=== PATIENT | female | born 1995 | race American Indian/Alaskan Native ===

== ENCOUNTER 2022-02-20 11:01 | Emergency (ER) | payer MEDICAID ==
--- NOTE | 2022-02-20 11:05 | Emergency Department Report ---
ED Female HPI - General Stated complaint: SEIZURE Time Seen by Provider: 02/20/22 11:04 ED Review of Systems ROS: Stated complaint: SEIZURE Other details as noted in HPI Critical care attestation.: If time is entered above; I have spent that time in minutes in the direct care of this critically ill patient, excluding procedure time. ED Disposition Condition: Stable
[2022-02-20] MEDS ORDERED: levETIRAcetam 500 MG TAB PO ONE (12:18)
[2022-02-20 12:20] VITALS: BP 114/78
--- NOTE | 2022-02-20 12:22 | Emergency Department Report ---
ED Seizure HPI - General Chief Complaint: Seizure Stated Complaint: SEIZURE Time Seen by Provider: 02/20/22 11:04 Source: patient, EMS Mode of arrival: Stretcher Limitations: No Limitations - History of Present Illness Initial Comments: 26-year-old female the past medical history of seizures presents to the hospital with breakthrough seizure. Patient's been noncompliant with Depakote x1 year. Patient stopped the medication because it caused her hair to follow-up and she has not sought out follow-up for an alternative medication. Patient denies to ngue biting. Positive urinary incontinence. Positive prodrome of copper taste in her mouth. Patient is currently at her baseline mental status, alert and oriented x3, and denies pain complaints. Her is at the bedside. Confirms that patient does not drive. EMS reported Accu-Chek in 120s prior to arrival - Related Data Previous Rx's Medication Instructions Recorded Last Taken Type levETIRAcetam [Keppra TAB] 500 mg PO BID #60 tablet 02/20/22 Unknown Rx Allergies Allergy/AdvReac Type Severity Reaction Status Date / Time No Known Allergies Allergy Verified 02/20/22 11:05 ED Review of Systems ROS: Stated complaint: SEIZURE Other details as noted in HPI Comment: All other systems reviewed and negative ED Past Medical Hx - Medications Home Medications: Home Medications Medication Instructions Recorded Confirmed Last Taken Type levETIRAcetam [Keppra TAB] 500 mg PO BID #60 tablet 02/20/22 Unknown Rx ED Physical Exam - General Limitations: No Limitations - Other Other exam information: General: No acute distress Head: Atraumatic Eyes: normal appearance ENT: Moist mucous membranes Neck: Normal appearance, no midline tenderness Chest: Clear to auscultation bilaterally CV: Regular rate and rhythm Abdomen: Soft, normal bowel sounds, nontender, nondistended, no rebound or guarding Back: Normal inspection Extremity: Normal inspection, full range of motion Neuro: Alert O x 3, no facial asymmetry, speech clear, no gross motor sensory deficit, [id number] function intact Psych: Appropriate behavior Skin: No rash ED Course Vital Signs 02/20/22 11:03 Temperature 98.2 F Pulse Rate 82 Blood Pressure 132/74 [Left] O2 Sat by Pulse 99 Oximetry ED Medical Decision Making - Medical Decision Making 26-year-old female status post breakthrough seizure who currently presents alert and oriented x3 without any physical complaints. Patient is a history of seizures and has been noncompliant with medication x1 year. She does not want to take Depakote because it causes her hair to follow-up. She is agreeable to trying an alternative medication. Patient declined further ED work-up including blood work urine collection and she does not want IV medication. She was provided Keppra 1 g p.o. prior to discharge and will be discharged on Keppra 500 mg twice daily Critical Care Time: No Critical care attestation.: If time is entered above; I have spent that time in minutes in the direct care of this critically ill patient, excluding procedure time. ED Disposition Clinical Impression: Seizure, Noncompliance with medications Disposition: 01 HOME / SELF CARE / HOMELESS Is pt being admited?: No Does the pt Need Aspirin: No Condition: Good Instructions: Seizure, Adult, Levetiracetam tablets Additional Instructions: Take the medication as prescribed. Follow-up with your doctor or doctor/clinic provided. Return if symptoms worsen as indicated by your discharge instructions. Prescriptions: levETIRAcetam [Keppra TAB] 500 mg PO BID #60 tablet Referrals: OLU FLORENCE MD [Staff Physician] - 3-5 Days (Neurologist) Time of Disposition: 12:23
== END 2022-02-20 13:07 | disposition home or self-care (01) ==
LOC: ED 11:01
DX: R56.9 Unspecified convulsions (principal); Z91.14 Patient's other noncompliance with medication regimen; Z79.899 Other long term (current) drug therapy
CPT/HCPCS: 99283